=== PATIENT | female | born 1955 | race Caucasian/White ===

== ENCOUNTER 2018-09-21 19:55 | Inpatient (IN) ==
[2018-09-21] MEDS ORDERED: 0.9 % Sodium Chloride 1,000 ML IVC ONE ×2 (20:11→23:08)
--- NOTE | 2018-09-21 20:20 | Emergency Department Note ---
Disposition Clinical Impression: Pneumonia Qualifiers: Pneumonia type: due to unspecified organism Laterality: unspecified laterality Lung location: unspecified part of lung Qualified Code(s): J18.9 - Pneumonia, unspecified organism Disposition: Admitted As Inpatient Condition: Fair Time of Disposition: 23:16 SOB HPI - General Chief Complaint: ED Shortness of Breath/Dyspnea Stated Complaint: AUREA, congestion Time Seen by Provider: 09/21/18 20:00 Source: patient Mode of arrival: ambulatory Limitations: no limitations Nursing Notes Reviewed: Yes Vital Signs Reviewed: Yes - History of Present Illness This is a 63-year-old female with a history of hypertension he presents with shortness of breath that started today. Patient has been experiencing congestion symptoms for the past 1.5 months. However today she started being increasingly short of breath with a cough productive of sputum and wheezing. She also endorses chest tightness across the front of her chest that is constant. Pain does not worsen with deep breaths or movement. Pain is not improved with rest. Patient has not tried any medications for her pain or other symptoms. She endorses subjective chills but no nausea, vomiting, fevers. Patient says she smokes a pack per day has never been diagnosed with COPD. Denies abdominal pain, diarrhea, constipation. Denies dysuria. She also denies any recent hospitalizations, surgeries, hormone use. She has never had a blood clot and is not on any anticoagulation. Denies any leg cramping or swelling. - Related Data Home Medications Medication Instructions Recorded Confirmed LORazepam [Ativan] 1.5 mg PO QID PRN 10/08/14 04/28/16 Montelukast [Singulair] 10 mg PO DAILY 10/08/14 04/28/16 Simvastatin 20 mg PO QPM 10/08/14 04/28/16 Ergocalciferol (VITAMIN D2) 50,000 unit PO TUSA 08/08/15 04/28/16 [Vitamin D2 (50,000 UNIT)] Fexofenadine HCl 180 mg PO DAILY 08/08/15 04/28/16 Valsartan/Hydrochlorothiazide 1 each PO DAILY 08/08/15 04/28/16 [Diovan Hct 320-12.5 mg Tab] Lansoprazole [Prevacid] 30 mg PO DAILY 04/28/16 04/28/16 Levothyroxine [Synthroid] 100 mcg PO DAILY 09/21/18 09/21/18 Allergies Allergy/AdvReac Type Severity Reaction Status Date / Time Sulfa (Sulfonamide Allergy Intermediate Swelling Verified 09/21/18 20:00 Antibiotics) of Lip/Tongue/Throat ciprofloxacin [From Cipro] AdvReac Gastrointestinal Verified 09/21/18 20:00 Upset hydrocodone AdvReac Hallucinati Verified 09/21/18 20:00 ng tramadol [From Ultram] AdvReac Swelling Verified 09/21/18 20:00 of Lip/Tongue/Throat All systems ED: reviewed and negative except as stated. Review of Systems: As Per HPI Constitutional: Denies: fever, chills, weakness Eyes: Denies: eye pain, eye discharge, vision change ENT ED: Denies: ear pain, throat pain, dental pain Cardiovascular: Denies: chest pain, palpitations, dyspnea on exertion Respiratory: Reports: cough, dyspnea, wheezes, sputum production. Denies: hemoptysis Gastrointestinal: Denies: abdominal pain, nausea, vomiting, diarrhea, constipation, hematemesis Genitourinary: Denies: urgency, dysuria, frequency Musculoskeletal: Denies: back pain, neck pain, joint swelling Integumentary: Denies: rash, abrasion, lesions Neurological: Denies: headache, weakness, numbness Psychiatric: Denies: anxiety, depression, suicidal thoughts Endocrine: Denies: fatigue, heat or cold intolerance, polydipsia Past Medical History - Past Medical History Attestation: Yes The following information was validated with the patient. Source: patient Medical history: Reports: GERD, hyperlipidemia, hypertension, thyroid disease Surgical history: Reports: cholecystectomy, orthopedic, other, sinus surgery, other Psychiatric history: Reports: anxiety, depression [employer] REPRESENTATIVE history: Reports: bilateral tubal ligation - Social History Smoking Status: Current every day smoker Smokeless Tobacco Status: No Alcohol use: Reports: rarely Drug use: Reports: none Physical Exam Gen: alert, in no apparent distress, conversant Head: normal inspection, atraumatic, normocephalic Eye: PERRL, EOMI, no scleral icterus ENT: moist mucous membranes, normal oropharynx, no erythema/drainage Neck: trachea midline, no LAD, full ROM CV: normal inspection, RRR, no MRG, audible s1/s2 Pulm: IVs were rhonchi and crackles, good air exchange bilaterally GI: normal inspection, soft, nontender, nondistended, active BS, no rebound/rigidity/guarding, no trauma : no CVA or suprapubic tenderness Skin/Ext: warm, flushed, dry, intact, Ext: full peripheral pulses, no LE edema MSK: appropriate muscle tone, full ROM, no joint swelling/erythema Back: normal inspection, full ROM Neuro: alert, orientedx3 Psych: normal affect, normal mood - General General appearance: alert, in no apparent distress Course Course Narrative: Patient was seen and examined. Vitals were remarkable for fever 100.2 and tachycardic to the 120s. Blood pressure systolic in 150s. Sepsis order set was ordered. A 1 L bolus of normal saline was given and not the typical 3 L out of concern for fluid overload. She was given 1 g of Tylenol. DuoNeb was given for shortness of breath. - Reevaluation(s) Reevaluation #1: Started on a course of a azithromycin and ceftriaxone. Time: 21:32 Reevaluation #2: She was given additional liter normal saline bolus. Time: 23:18 Reevaluation #3: Communicated with hospitalist, accepted for admission. Time: 23:19 Vital Signs Temperature 100.2 F H 09/21/18 19:57 Pulse Rate 124 09/21/18 19:57 Respiratory Rate 18 09/21/18 19:57 Blood Pressure 150/85 09/21/18 19:57 O2 Sat by Pulse Oximetry 92 09/21/18 19:57 Temperature 99.3 F 09/21/18 22:02 Pulse Rate 106 09/21/18 22:02 Respiratory Rate 18 09/21/18 20:51 Blood Pressure 133/72 09/21/18 22:02 O2 Sat by Pulse Oximetry 95 09/21/18 22:02 Oxygen Delivery Oxygen Delivery Room Air Shortness of Breath/Dyspnea - MDM Narrative Medical decision making narrative: The patient is a 63-year-old female who is presenting with fever, shortness of breath, cough for the past day. Differential includes but is not limited to pneumonia concerning for sepsis, DVT/PE, TN, ACS, COPD exacerbation. Labs remarkable for a white count 22, lactic acid of 2.3, potassium of 3.4. D-dimer was negative making DVT/PE less likely. EKG showed no signs of ischemia thinking TN/ACS less likely. Chest x-ray showed an increased density in the left retrocardiac region with possible atelectasis or pneumonia. She was started on azithromycin and ceftriaxone for community acquired pneumonia. She at this time is resting comfortably, stable and is not hypoxemic. Patient was communicated to the hospitalist and she was accepted for admission for further management of pneumonia. - Medical Records Medical records reviewed: Yes I reviewed the patient's medical records. - Lab Data Lab results reviewed: Yes I reviewed the patient's lab results. Result diagrams: 09/21/18 20:24 09/21/18 20:24 Lab Results 09/21/18 09/21/18 09/21/18 Range/Units 20:24 20:24 20:24 WBC 22.0 H (4.3-11.1) K/mcL RBC 5.30 H (3.82-4.97) M/mcL Hgb 16.1 H (11.5-15.4) g/dL Hct 48.3 H (35.3-44.9) % MCV 91.1 (83.0-100.0) fL MCH 30.4 (28.0-33.3) pg MCHC 33.3 (31.6-35.5) g/dL RDW 13.7 (11.5-14.5) % Plt Count 224 (140-400) K/mcL MPV 11.5 (9.4-12.4) fL Immature Gran % 0.5 (0-4) % Seg Neutrophils % 81.0 % Lymphocytes % 12.9 % Monocytes % 5.0 % Eosinophils % 0.3 % Basophils % 0.3 % Neutrophils # 17.8 H (1.6-8.9) K/mcL Lymphocytes # 2.8 (0.6-4.6) K/mcL Monocytes # 1.1 (0.0-1.3) K/mcL Eosinophils # 0.1 (0.0-0.6) K/mcL Basophils # 0.1 (0.0-0.2) K/mcL D-Dimer (0-500) ng/mLFEU Sodium 138 (136-145) mEq/L Potassium 3.4 L (3.5-5.1) mEq/L Chloride 102 (98-107) mEq/L Carbon Dioxide 24 (23-29) mEq/L BUN 14 (8-23) mg/dL Creatinine 0.66 (0.60-1.20) mg/dL Est GFR ( Amer) > 60 (> 60) Est GFR (Non-Af Amer) > 60 (> 60) BUN/Creatinine Ratio 21 (6-26) Glucose 99 (70-105) mg/dL Calculated Osmolality 287 (280-300) Lactic Acid 2.3 H (0.5-2.2) mmol/L Calcium 9.5 (8.6-10.3) mg/dL Phosphorus 3.5 (2.7-4.5) mg/dL Magnesium 1.8 (1.6-2.6) mg/dL Total Bilirubin 0.6 (0.3-1.0) mg/dL Direct Bilirubin 0.2 (0.0-0.2) mg/dL Indirect Bilirubin 0.4 (0.0-1.2) mg/dL AST 17 (13-39) Units/L ALT 16 (7-52) Units/L Alkaline Phosphatase 76 (34-104) Units/L Troponin I < 0.03 (< 0.04) ng/mL Serum Total Protein 7.6 (6.4-8.9) g/dL Albumin 4.5 (3.5-5.7) g/dL Globulin 3.1 (2.4-3.5) g/dL Albumin/Globulin Ratio 1.5 (1.1-2.2) // Range/Units 20:25 WBC (4.3-11.1) K/mcL RBC (3.82-4.97) M/mcL Hgb (11.5-15.4) g/dL Hct (35.3-44.9) % MCV (83.0-100.0) fL MCH (28.0-33.3) pg MCHC (31.6-35.5) g/dL RDW (11.5-14.5) % Plt Count (140-400) K/mcL MPV (9.4-12.4) fL Immature Gran % (0-4) % Seg Neutrophils % % Lymphocytes % % Monocytes % % Eosinophils % % Basophils % % Neutrophils # (1.6-8.9) K/mcL Lymphocytes # (0.6-4.6) K/mcL Monocytes # (0.0-1.3) K/mcL Eosinophils # (0.0-0.6) K/mcL Basophils # (0.0-0.2) K/mcL D-Dimer 400 (0-500) ng/mLFEU Sodium (136-145) mEq/L Potassium (3.5-5.1) mEq/L Chloride (98-107) mEq/L Carbon Dioxide (23-29) mEq/L BUN (8-23) mg/dL Creatinine (0.60-1.20) mg/dL Est GFR ( Amer) (> 60) Est GFR (Non-Af Amer) (> 60) BUN/Creatinine Ratio (6-26) Glucose (70-105) mg/dL Calculated Osmolality (280-300) Lactic Acid (0.5-2.2) mmol/L Calcium (8.6-10.3) mg/dL Phosphorus (2.7-4.5) mg/dL Magnesium (1.6-2.6) mg/dL Total Bilirubin (0.3-1.0) mg/dL Direct Bilirubin (0.0-0.2) mg/dL Indirect Bilirubin (0.0-1.2) mg/dL AST (13-39) Units/L ALT (7-52) Units/L Alkaline Phosphatase (34-104) Units/L Troponin I (< 0.04) ng/mL Serum Total Protein (6.4-8.9) g/dL Albumin (3.5-5.7) g/dL Globulin (2.4-3.5) g/dL Albumin/Globulin Ratio (1.1-2.2) - Radiology Data Radiology results reviewed: Yes I reviewed the patient's radiology results. Chest X-Ray 09/21/18 20:12 IMPRESSION: Increased density in the left retrocardiac region. This is likely a confluence of shadows however a small focal segment of atelectasis/pneumonia would be difficult to exclude. Upright two view 2 chest would be more helpful in this regard No acute abnormality otherwise D/ / Oh Valerio / Oh Valerio Interpreting Provider: Oh Valerio - EKG Data EKG attestation: Yes I reviewed and interpreted this EKG. EKG results narrative: KG was obtained at 8:08 PM. My interpretation of the EKG shows sinus tachycardia at a rate of 118. Normal intervals, no axis deviation, no hypertrophy, no ST elevations or depressions, no T-wave inversions. No evidence of Brugada, HOCM, the WPW. Compared to previous EKG from the Apr 22 2016. Sepsis Event Note - Evaluation Sepsis Screen: Sepsis Risk Current Stage of Suspected Sepsis: sepsis Possible Source of Sepsis: pulmonary - Focused Exam Date of Encounter: 09/21/18 Time of Encounter: Vital Signs: Vital Signs Temp Pulse Resp BP Pulse Ox 09/21/18 22:02 99.3 F 106 133/72 95 09/21/18 20:51 18 97 09/21/18 20:06 100.2 F H 124 18 150/85 92 09/21/18 19:57 100.2 F H 124 18 150/85 92 Respiratory Exam: Present: rhonchi, crackles Cardiovascular Exam: Present: tachycardia. Absent: irregular rhythm, murmur, rubs Capillary Refill: < 2 seconds Peripheral Pulse Strength: 3+ normal Peripheral Pulse Location: Radial Skin Exam: flushed - Bedside Monitoring Bedside Ultrasound Performed: No Passive Leg raise/fluid bolus: not performed
--- NOTE | 2018-09-21 20:31 | Emergency Department Note ---
Disposition Clinical Impression: Pneumonia Qualifiers: Pneumonia type: due to unspecified organism Laterality: left Lung location: unspecified part of lung Qualified Code(s): J18.9 - Pneumonia, unspecified organism Disposition: Admitted As Inpatient Condition: Fair Referrals: Gatito Cleary DO [Primary Care Provider] - Forms: ED Satisfaction Letter Time of Disposition: 23:01 General Adult HPI - General Chief complaint: ED Shortness of Breath/Dyspnea Stated complaint: AUREA, congestion Time Seen by Provider: 09/21/18 20:00 Source: patient Mode of arrival: ambulatory Limitations: no limitations - History of Present Illness Pain Scale: 4 - Related Data Home Medications Medication Instructions Recorded Confirmed LORazepam [Ativan] 1.5 mg PO QID PRN 10/08/14 09/21/18 Montelukast [Singulair] 10 mg PO DAILY 10/08/14 09/21/18 Simvastatin 20 mg PO QPM 10/08/14 09/21/18 Ergocalciferol (VITAMIN D2) 50,000 unit PO TUSA 08/08/15 09/21/18 [Vitamin D2 (50,000 UNIT)] Fexofenadine HCl 180 mg PO DAILY 08/08/15 09/21/18 Valsartan/Hydrochlorothiazide 1 each PO DAILY 08/08/15 09/21/18 [Diovan Hct 320-12.5 mg Tab] Lansoprazole [Prevacid] 30 mg PO DAILY 04/28/16 09/21/18 Levothyroxine [Synthroid] 100 mcg PO DAILY 09/21/18 09/21/18 Allergies Allergy/AdvReac Type Severity Reaction Status Date / Time Sulfa (Sulfonamide Allergy Intermediate Swelling Verified 09/21/18 20:00 Antibiotics) of Lip/Tongue/Throat ciprofloxacin [From Cipro] AdvReac Gastrointestinal Verified 09/21/18 20:00 Upset hydrocodone AdvReac Hallucinati Verified 09/21/18 20:00 ng tramadol [From Ultram] AdvReac Swelling Verified 09/21/18 20:00 of Lip/Tongue/Throat Constitutional: Denies: fever, chills, weakness Eyes: Denies: eye pain, eye discharge, vision change ENT ED: Denies: ear pain, throat pain, dental pain Cardiovascular: Denies: chest pain, palpitations, dyspnea on exertion Respiratory: Reports: cough, dyspnea, wheezes, sputum production. Denies: hemoptysis Gastrointestinal: Denies: abdominal pain, nausea, vomiting, diarrhea, constipation, hematemesis Genitourinary: Denies: urgency, dysuria, frequency Musculoskeletal: Denies: back pain, neck pain, joint swelling Integumentary: Denies: rash, abrasion, lesions Neurological: Denies: headache, weakness, numbness Psychiatric: Denies: anxiety, depression, suicidal thoughts Endocrine: Denies: fatigue, heat or cold intolerance, polydipsia Past Medical History - Past Medical History Medical history: Reports: GERD, hyperlipidemia, hypertension, thyroid disease Surgical history: Reports: cholecystectomy, orthopedic, other, sinus surgery, other Psychiatric history: Reports: anxiety, depression [employer] history: Reports: bilateral tubal ligation - Social History Smoking Status: Current every day smoker Smokeless Tobacco Status: No Alcohol use: Reports: rarely Drug use: Reports: none Physical Exam - General Limitations: no limitations General appearance: alert, in no apparent distress Course Vital Signs Temperature 100.2 F H 09/21/18 19:57 Pulse Rate 124 09/21/18 19:57 Respiratory Rate 18 09/21/18 19:57 Blood Pressure 150/85 09/21/18 19:57 O2 Sat by Pulse Oximetry 92 09/21/18 19:57 Temperature 99.3 F 09/21/18 22:02 Pulse Rate 106 09/21/18 22:02 Respiratory Rate 18 09/21/18 20:51 Blood Pressure 133/72 09/21/18 22:02 O2 Sat by Pulse Oximetry 95 09/21/18 22:02 Oxygen Delivery Oxygen Delivery Room Air Medical Decision Making - Lab Data Result diagrams: 09/21/18 20:24 09/21/18 20:24 Lab Results 09/21/18 09/21/18 09/21/18 Range/Units 20:24 20:24 20:24 WBC 22.0 H (4.3-11.1) K/mcL RBC 5.30 H (3.82-4.97) M/mcL Hgb 16.1 H (11.5-15.4) g/dL Hct 48.3 H (35.3-44.9) % MCV 91.1 (83.0-100.0) fL MCH 30.4 (28.0-33.3) pg MCHC 33.3 (31.6-35.5) g/dL RDW 13.7 (11.5-14.5) % Plt Count 224 (140-400) K/mcL MPV 11.5 (9.4-12.4) fL Immature Gran % 0.5 (0-4) % Seg Neutrophils % 81.0 % Lymphocytes % 12.9 % Monocytes % 5.0 % Eosinophils % 0.3 % Basophils % 0.3 % Neutrophils # 17.8 H (1.6-8.9) K/mcL Lymphocytes # 2.8 (0.6-4.6) K/mcL Monocytes # 1.1 (0.0-1.3) K/mcL Eosinophils # 0.1 (0.0-0.6) K/mcL Basophils # 0.1 (0.0-0.2) K/mcL D-Dimer (0-500) ng/mLFEU Sodium 138 (136-145) mEq/L Potassium 3.4 L (3.5-5.1) mEq/L Chloride 102 (98-107) mEq/L Carbon Dioxide 24 (23-29) mEq/L BUN 14 (8-23) mg/dL Creatinine 0.66 (0.60-1.20) mg/dL Est GFR ( Amer) > 60 (> 60) Est GFR (Non-Af Amer) > 60 (> 60) BUN/Creatinine Ratio 21 (6-26) Glucose 99 (70-105) mg/dL Calculated Osmolality 287 (280-300) Lactic Acid 2.3 H (0.5-2.2) mmol/L Calcium 9.5 (8.6-10.3) mg/dL Phosphorus 3.5 (2.7-4.5) mg/dL Magnesium 1.8 (1.6-2.6) mg/dL Total Bilirubin 0.6 (0.3-1.0) mg/dL Direct Bilirubin 0.2 (0.0-0.2) mg/dL Indirect Bilirubin 0.4 (0.0-1.2) mg/dL AST 17 (13-39) Units/L ALT 16 (7-52) Units/L Alkaline Phosphatase 76 (34-104) Units/L Troponin I < 0.03 (< 0.04) ng/mL Serum Total Protein 7.6 (6.4-8.9) g/dL Albumin 4.5 (3.5-5.7) g/dL Globulin 3.1 (2.4-3.5) g/dL Albumin/Globulin Ratio 1.5 (1.1-2.2) 09/21/18 Range/Units 20:25 WBC (4.3-11.1) K/mcL RBC (3.82-4.97) M/mcL Hgb (11.5-15.4) g/dL Hct (35.3-44.9) % MCV (83.0-100.0) fL MCH (28.0-33.3) pg MCHC (31.6-35.5) g/dL RDW (11.5-14.5) % Plt Count (140-400) K/mcL MPV (9.4-12.4) fL Immature Gran % (0-4) % Seg Neutrophils % % Lymphocytes % % Monocytes % % Eosinophils % % Basophils % % Neutrophils # (1.6-8.9) K/mcL Lymphocytes # (0.6-4.6) K/mcL Monocytes # (0.0-1.3) K/mcL Eosinophils # (0.0-0.6) K/mcL Basophils # (0.0-0.2) K/mcL D-Dimer 400 (0-500) ng/mLFEU Sodium (136-145) mEq/L Potassium (3.5-5.1) mEq/L Chloride (98-107) mEq/L Carbon Dioxide (23-29) mEq/L BUN (8-23) mg/dL Creatinine (0.60-1.20) mg/dL Est GFR ( Amer) (> 60) Est GFR (Non-Af Amer) (> 60) BUN/Creatinine Ratio (6-26) Glucose (70-105) mg/dL Calculated Osmolality (280-300) Lactic Acid (0.5-2.2) mmol/L Calcium (8.6-10.3) mg/dL Phosphorus (2.7-4.5) mg/dL Magnesium (1.6-2.6) mg/dL Total Bilirubin (0.3-1.0) mg/dL Direct Bilirubin (0.0-0.2) mg/dL Indirect Bilirubin (0.0-1.2) mg/dL AST (13-39) Units/L ALT (7-52) Units/L Alkaline Phosphatase (34-104) Units/L Troponin I (< 0.04) ng/mL Serum Total Protein (6.4-8.9) g/dL Albumin (3.5-5.7) g/dL Globulin (2.4-3.5) g/dL Albumin/Globulin Ratio (1.1-2.2) Attestation Statement - Attestation Attestation: I examined this patient and my medical decision-making was reviewed with the Resident Physician. I agree with the documented findings, disposition and treatment plan as described except to the extent set forth below. Patient presents to the ED with a chief complaint of shortness of breath. Patient has had a cough and congestion for couple of weeks. It worsened today. She has felt feverish, but has not had a thermometer to check her temperature. History of hypertension. History of a spine fusion. On exam she is in no respiratory distress. She has diffuse rhonchi and wheezing on lung auscultation. Plan. Septic workup. Patient with infiltrate on her chest x-ray. She does need sepsis criteria tachycardia, fever, leukocytosis. IV antibodies ordered. Blood cultures ordered. Lactic ordered. She does not meet septic shock criteria. Patient is hemodynamically stable. Admitted to medicine. Chest X-Ray 09/21/18 20:12 IMPRESSION: Increased density in the left retrocardiac region. This is likely a confluence of shadows however a small focal segment of atelectasis/pneumonia would be difficult to exclude. Upright two view 2 chest would be more helpful in this regard No acute abnormality otherwise D/ / Oh Valerio / Oh Valerio Interpreting Provider: Oh Valerio
[2018-09-21] MEDS ORDERED: Ipratropium/Albuterol Neb 3 ML IH ONE (20:32)
[2018-09-21 20:39] LABS: Basophils # 0.1 K/mcL (0.0-0.2); Basophils % 0.3 %; Eosinophils # 0.1 K/mcL (0.0-0.6); Eosinophils % 0.3 %; Hematocrit 48.3 % (35.3-44.9); Hemoglobin 16.1 g/dL (11.5-15.4); Immature Granulocytes % 0.5 % (0-4); Lymphocytes # 2.8 K/mcL (0.6-4.6); Lymphocytes % 12.9 %; Mean Corpuscular HGB Conc 33.3 g/dL (31.6-35.5); Mean Corpuscular Hemoglobin 30.4 pg (28.0-33.3); Mean Corpuscular Volume 91.1 fL (83.0-100.0); Mean Platelet Volume 11.5 fL (9.4-12.4); Monocytes # 1.1 K/mcL (0.0-1.3); Neutrophils # 17.8 K/mcL (1.6-8.9); Platelet Count 224 K/mcL (140-400); Red Cell Distribution Width 13.7 % (11.5-14.5)
[2018-09-21 20:58] LABS: Alanine Aminotransferase 16 Units/L (7-52); Albumin 4.5 g/dL (3.5-5.7); Albumin/Globulin Ratio 1.5 (1.1-2.2); Alkaline Phosphatase 76 Units/L (34-104); Aspartate Amino Transferase 17 Units/L (13-39); BUN/Creatinine Ratio 21 (6-26); Bilirubin,Direct 0.2 mg/dL (0.0-0.2); Bilirubin,Indirect 0.4 mg/dL (0.0-1.2); Bilirubin,Total 0.6 mg/dL (0.3-1.0); Blood Urea Nitrogen 14 mg/dL (8-23); Calcium 9.5 mg/dL (8.6-10.3); Carbon Dioxide 24 mEq/L (23-29); Chloride 102 mEq/L (98-107); Globulin 3.1 g/dL (2.4-3.5); Glucose 99 mg/dL (70-105); Magnesium 1.8 mg/dL (1.6-2.6); Osmolality,Calculated 287 (280-300); Phosphorous 3.5 mg/dL (2.7-4.5); Potassium 3.4 mEq/L (3.5-5.1); Sodium 138 mEq/L (136-145); Total Protein 7.6 g/dL (6.4-8.9); Troponin I < 0.03 ng/mL (< 0.04); eGFR For African Americans > 60 (> 60); eGFR For Non-African Americans > 60 (> 60)
[2018-09-21] MEDS ORDERED: Azithromycin 250 MG TABLET PO ONE (21:28)
[2018-09-21] MEDS ORDERED: cefTRIAXone 1,000 MG in Water for inj. (sterile) 10 ML IVP ONE (21:29)
[2018-09-21 23:35] LABS: Bilirubin,Urine Negative (Negative); Blood,Urine Negative (Negative); Clarity,Urine Clear (Clear); Color,Urine Yellow (Yellow); Glucose,Urine (UA) Normal (Normal); Ketones,Urine Negative (Negative); Leukocyte Esterase,Urine Negative (Negative); Nitrite,Urine Negative (Negative); PH,Urine 5.5 pH Units (5.0-8.0); Protein,Urine Negative (Neg-Trace); Specific Gravity,Urine 1.015 (1.010-1.025); Urobilinogen,Urine Normal (Normal)
[2018-09-21] MEDS ORDERED: 0.9 % Sodium Chloride 1,000 ML IVC SCH (23:45)
[2018-09-21] MEDS ORDERED: Naloxone 0.4 MG/ML INJ IVP PRN (23:47)
[2018-09-21] MEDS ORDERED: Isovue-370 500 ML BOTTLE IVP ONE (23:50)
[2018-09-22] MEDS ORDERED: Ipratropium/Albuterol Neb 3 ML IH PRN (00:28)
--- NOTE | 2018-09-22 00:34 | Internal Med History&Physical ---
Date of Encounter: 09/22/18 Time of Encounter: 00:33 Internal Medicine - H&P: HPI Chief complaint: cough Admitted From: Home Plans for Post Hospital Care: Home History of present illness: Jeana Castañeda is a 63 year old woman who is an active 1 pack-a-day smoker with hypertension and postsurgical hypothyroidism presents to the emergency room complaining of 2 days of chest and nasal congestion, increasing shortness of breath, productive cough and chills. In the ER she was found to have a temperature of 100.2 F, tachycardic and with lab work revealing a leukocyte count of 22. Chest x-ray is reviewed by me showed increased density in the retrocardiac region concerning for pneumonia. She was started on empiric antibiotics and is admitted for further care. Vitals: Reviewed General: Obese white woman sitting up in bed in no acute distress. Skin: Warm, dry and pale. HEENT: Moist mucous membranes. No conjunctivae pallor. Neck: No lymphadenopathy. No JVD. No carotid bruits. No palpable thyroid. Chest: Reduced thoracic expansion. Diminished breath sounds in the right base. Fine rales in the left base. Heart: Normal S1 & S2; rhythmic. No rubs or murmurs. Abdomen: Non-distended, soft and non-tender to palpation. No peritoneal reaction. Extremities: No clubbing, cyanosis or edema. No calf tenderness. Normal distal pulses. Neurological: Awake, alert and oriented to person, place and time. No focal deficits. Psych: Affect appropriate. Assessment/Plan 1. Sepsis secondary to community-acquired pneumonia: Will continue ceftriaxone/azithromycin for now, follow blood cultures, collect urine for antigen testing and provide nebulizer therapy as needed. 2. Hypertension: On valsartan/HCTZ. 3. Smoker: 5 minutes were spent counseling and educating the patient on this habit. substance abuse services director and resources were made available. 4. Hyperlipidemia: On simvastatin. Past Med Surg Social Fam HX - Past Medical History Medical history: GERD, hyperlipidemia, hypertension, thyroid disease Additional medical history: cystocele, elevated lft's, hx blood clot l arm. Thyroid nodule. GERD. Tobacco abuse. declined smoking cessation Psychiatric history: anxiety, depression - Past Surgical History Surgical History: cholecystectomy, sinus surgery Additional surgical history: r knee arthroscopy, tubal, fusion of l4/l5, partial thyroidectomy - Social History Smoking Status: Current every day smoker Smokeless Tobacco Status: No Alcohol use: rarely Drug use: none - Family History Mother Hx Family Cardiac Disorders: Yes Father Hx Family Cardiac Disorders: Yes Internal Medicine - H&P: Meds LORazepam [Ativan] 1.5 mg PO QID PRN 10/08/14 [History] Montelukast [Singulair] 10 mg PO DAILY 10/08/14 [History] Simvastatin 20 mg PO QPM 10/08/14 [History] Ergocalciferol (VITAMIN D2) [Vitamin D2 (50,000 UNIT)] 50,000 unit PO TUSA 08/08/15 [History] Fexofenadine HCl 180 mg PO DAILY 08/08/15 [History] Valsartan/Hydrochlorothiazide [Diovan Hct 320-12.5 mg Tab] 1 each PO DAILY 08/08/15 [History] Lansoprazole [Prevacid] 30 mg PO DAILY 04/28/16 [History] Levothyroxine [Synthroid] 100 mcg PO DAILY 09/21/18 [History] Allergy/AdvReac Type Severity Reaction Status Date / Time Sulfa (Sulfonamide Allergy Intermediate Swelling Verified 09/21/18 20:00 Antibiotics) of Lip/Tongue/Throat ciprofloxacin [From Cipro] AdvReac Gastrointestinal Verified 09/21/18 20:00 Upset hydrocodone AdvReac Hallucinati Verified 09/21/18 20:00 ng tramadol [From Ultram] AdvReac Swelling Verified 09/21/18 20:00 of Lip/Tongue/Throat All Systems PM: A 10-system review of systems was performed and is negative for pertinent findings except as documented above in the HPI. - Constitutional Vitals: Temp Pulse Resp BP Pulse Ox 98.4 F 100 16 131/78 91 09/21/18 23:58 09/21/18 23:58 09/21/18 23:58 09/21/18 23:58 09/21/18 23:58 Exam: . Internal Med - H&P Results - Labs CBC & Chem 7: 09/21/18 20:24 09/21/18 20:24 Labs: Short CBC 09/21/18 Range/Units 20:24 WBC 22.0 H (4.3-11.1) K/mcL Hgb 16.1 H (11.5-15.4) g/dL Hct 48.3 H (35.3-44.9) % Plt Count 224 (140-400) K/mcL Neutrophils # 17.8 H (1.6-8.9) K/mcL BMP 09/21/18 20:24 Sodium 138 Potassium 3.4 L Chloride 102 Carbon Dioxide 24 BUN 14 Creatinine 0.66 Glucose 99 Calcium 9.5 Cardiac Enzymes 09/21/18 Range/Units 20:24 Troponin I < 0.03 (< 0.04) ng/mL Liver Function 09/21/18 Range/Units 20:24 Total Bilirubin 0.6 (0.3-1.0) mg/dL Direct Bilirubin 0.2 (0.0-0.2) mg/dL AST 17 (13-39) Units/L ALT 16 (7-52) Units/L Alkaline Phosphatase 76 (34-104) Units/L Albumin 4.5 (3.5-5.7) g/dL Urine 09/21/18 Range/Units 20:20 Urine Color Yellow (Yellow) Urine Clarity Clear (Clear) Urine pH 5.5 (5.0-8.0) pH Units Ur Specific [place] 1.015 (1.010-1.025) Urine Protein Negative (Neg-Trace) mg/dL Urine Glucose (UA) Normal (Normal) mg/dL - Impressions ITS Impressions Chest X-Ray 09/21/18 20:12 IMPRESSION: Increased density in the left retrocardiac region. This is likely a confluence of shadows however a small focal segment of atelectasis/pneumonia would be difficult to exclude. Upright two view 2 chest would be more helpful in this regard No acute abnormality otherwise D/ / Oh Valerio / Oh Valerio Interpreting Provider: Oh Valerio - Time Spent With Patient Total time spent is greater than 50% in coordination of care (as documented) at patient's floor/unit and/or counseling patient: Greater than 35 minutes
[2018-09-22] MEDS: *HR* Heparin 5,000 UNIT/ML VIAL SQ SCH ×2 (06:12→18:14)
[2018-09-22 07:35] LABS: Basophils % 0.2 %; Eosinophils # 0.1 K/mcL (0.0-0.6); Eosinophils % 0.5 %; Hematocrit 41.3 % (35.3-44.9); Immature Granulocytes % 0.4 % (0-4); Lymphocytes # 2.4 K/mcL (0.6-4.6); Lymphocytes % 13.6 %; Mean Corpuscular HGB Conc 32.9 g/dL (31.6-35.5); Mean Corpuscular Hemoglobin 30.2 pg (28.0-33.3); Mean Corpuscular Volume 91.6 fL (83.0-100.0); Mean Platelet Volume 11.7 fL (9.4-12.4); Monocytes # 0.9 K/mcL (0.0-1.3); Monocytes % 5.3 %; Platelet Count 191 K/mcL (140-400); Red Blood Count 4.51 M/mcL (3.82-4.97); Red Cell Distribution Width 13.8 % (11.5-14.5); White Blood Count 17.5 K/mcL (4.3-11.1)
[2018-09-22 07:55] LABS: BUN/Creatinine Ratio 18 (6-26); Blood Urea Nitrogen 10 mg/dL (8-23); Calcium 8.5 mg/dL (8.6-10.3); Carbon Dioxide 24 mEq/L (23-29); Chloride 105 mEq/L (98-107); Glucose 117 mg/dL (70-105); Osmolality,Calculated 298 (280-300); Potassium 3.6 mEq/L (3.5-5.1); Sodium 144 mEq/L (136-145); eGFR For African Americans > 60 (> 60); eGFR For Non-African Americans > 60 (> 60)
[2018-09-22] MEDS: cefTRIAXone 1,000 MG in Water for inj. (sterile) 10 ML IVPB SCH (08:10)
[2018-09-22] MEDS: Loratadine 10 MG TABLET PO SCH (08:11)
[2018-09-22] MEDS: Acetaminophen 325 MG TABLET PO PRN (08:11)
[2018-09-22] MEDS: Azithromycin 500 MG in D5% in Water 250 ML IVPB SCH (08:12)
[2018-09-22] MEDS: Cholecalciferol (D-3) 1,000 UNIT (25MCG) TABLET PO SCH (08:13)
[2018-09-22] MEDS: *HR* LORazepam 1 MG TABLET PO PRN ×3 (08:20→21:10)
[2018-09-22 08:27] LABS: Hemoglobin 13.6 g/dL (11.5-15.4)
[2018-09-22] MEDS ORDERED: hydroCHLOROthiazide 25 MG TABLET PO SCH (09:00)
[2018-09-22] MEDS ORDERED: Valsartan 160 MG TABLET PO SCH (09:00)
--- NOTE | 2018-09-22 12:20 | Internal Med Progress Note ---
Hospitalist Progress Note - Encounter Date of Encounter: 09/22/18 Time of Encounter: 08:40 - Subjective Interval History: No acute events. Patient complains of some moderate lower back pain. She denies shortness of breath and chest pain at the moment. Her CT scan shows some infiltrates in the medial middle davon and right lower lobe which are consistent with pneumonia in light of her clinical presentation. - Exam Vitals: Temp Pulse Resp BP Pulse Ox 36.8 C 98 17 144/86 93 09/22/18 10:35 09/22/18 10:35 09/22/18 10:35 09/22/18 10:35 09/22/18 10:35 Exam: GENERAL: Not in distress. Alert and Oriented HEENT: EOMI, PERRLA MOUTH: Good oral hygiene NECK:No JVD, No lymph nodes. CHEST AND LUNGS: CTAB HEART: S1 and S2 normal, no murmurs ABDOMEN: Soft, nontender, no organomegaly GENITOURINARY: SKIN: Normal color, no rahses, no lesions EXTREMITIES: No deformity, no edema, no tenderness, no joint swelling or clubbing NEUROLOGICAL: Normal cognition, normal motor and sensory exam. - Assessment and Plan (1) Pneumonia Current Visit: Yes Status: Acute Assessment and Plan: -Patient presented last night with increased shortness of breath,productive cough and chills - Still has leukocytosis but is trending down - Vitals currently stable - Chest x-ray and CT scan findings consistent with a right lower lobe and middle lobe pneumonia - Continue azithromycin and ceftriaxone (2) Sepsis due to pneumonia Current Visit: Yes Status: Acute Assessment and Plan: Patient is currently vitally stable We will continue to monitor Continue azithromycin and ceftriaxone (3) Smoking Current Visit: Yes Status: Chronic Assessment and Plan: Patient counseled on smoking cessation (4) Hyperlipidemia Current Visit: Yes Status: Chronic Assessment and Plan: Continue home simvastatin (5) Hypertension Current Visit: No Status: Chronic Assessment and Plan: Blood pressure currently 140/78 We currently do not have olmersartan on formulary Patient takes a combination olmersartan and hydrochlorothiazide We will keep her on just hydrochlorothiazide for now since she refuses to take any substitute for olmersartan DVT Prophylaxis: SQ Heparin - Time Spent with Patient Total time spent is greater than 50% in coordination of care (as documented) at patient's floor/unit and/or counseling patient: Plan of Care Discussed with: patient Internal Medicine: Result - Labs CBC & Chem 7: 09/22/18 06:29 09/22/18 06:29 Labs: Short CBC 09/21/18 09/22/18 Range/Units 20:24 06:29 WBC 22.0 H 17.5 H (4.3-11.1) K/mcL Hgb 16.1 H 13.6 D (11.5-15.4) g/dL Hct 48.3 H 41.3 (35.3-44.9) % Plt Count 224 191 (140-400) K/mcL Neutrophils # 17.8 H 14.0 H (1.6-8.9) K/mcL BMP 09/21/18 09/22/18 20:24 06:29 Sodium 138 144 Potassium 3.4 L 3.6 Chloride 102 105 Carbon Dioxide 24 24 BUN 14 10 Creatinine 0.66 0.56 L Glucose 99 117 H Calcium 9.5 8.5 L Cardiac Enzymes 09/21/18 Range/Units 20:24 Troponin I < 0.03 (< 0.04) ng/mL Liver Function 09/21/18 Range/Units 20:24 Total Bilirubin 0.6 (0.3-1.0) mg/dL Direct Bilirubin 0.2 (0.0-0.2) mg/dL AST 17 (13-39) Units/L ALT 16 (7-52) Units/L Alkaline Phosphatase 76 (34-104) Units/L Albumin 4.5 (3.5-5.7) g/dL Urine 09/21/18 Range/Units 20:20 Urine Color Yellow (Yellow) Urine Clarity Clear (Clear) Urine pH 5.5 (5.0-8.0) pH Units Ur Specific [place] 1.015 (1.010-1.025) Urine Protein Negative (Neg-Trace) mg/dL Urine Glucose (UA) Normal (Normal) mg/dL - ABG Interpretation ABG results: PT/INR, D-dimer D-Dimer 400 ng/mLFEU (0-500) 09/21/18 20:25 - Impressions Impressions Chest X-Ray 09/21/18 20:12 IMPRESSION: Increased density in the left retrocardiac region. This is likely a confluence of shadows however a small focal segment of atelectasis/pneumonia would be difficult to exclude. Upright two view 2 chest would be more helpful in this regard No acute abnormality otherwise D/ / Oh Valerio / Oh Valerio Interpreting Provider: Oh Valerio Chest CT 09/22/18 23:50 IMPRESSION: 1. Infiltrates in the middle lobe and right lower lobe may represent atelectasis or pneumonia. 2. Bilateral nodular airspace disease may be infectious or inflammatory. 3. Coronary artery disease. D/ / Giovani Duran MD / Giovani Duran MD Interpreting Provider: Giovani Duran MD Consult Discharge Plan - Plan Referrals: Gatito Cleary DO [Primary Care Provider] - (1) Pneumonia Qualifiers: Pneumonia type: due to unspecified organism Laterality: right Lung location: lower lobe of lung Qualified Code(s): J18.1 - Lobar pneumonia, unspecified organism (5) Hypertension Qualifiers: Hypertension type: essential hypertension Qualified Code(s): I10 - Essential (primary) hypertension
[2018-09-22] MEDS: hydroCHLOROthiazide 25 MG TABLET PO SCH (14:04)
--- NOTE | 2018-09-23 00:21 | Electrocardiograph Report ---
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
[2018-09-23 03:29] LABS: BUN/Creatinine Ratio 18 (6-26); Blood Urea Nitrogen 11 mg/dL (8-23); Calcium 8.7 mg/dL (8.6-10.3); Carbon Dioxide 25 mEq/L (23-29); Chloride 104 mEq/L (98-107); Glucose 124 mg/dL (70-105); Osmolality,Calculated 287 (280-300); Potassium 3.3 mEq/L (3.5-5.1); Sodium 138 mEq/L (136-145); eGFR For African Americans > 60 (> 60); eGFR For Non-African Americans > 60 (> 60)
[2018-09-23 03:34] LABS: Basophils % 0.3 %; Eosinophils # 0.1 K/mcL (0.0-0.6); Eosinophils % 1.6 %; Hematocrit 39.5 % (35.3-44.9); Hemoglobin 13.2 g/dL (11.5-15.4); Immature Granulocytes % 0.3 % (0-4); Lymphocytes # 2.4 K/mcL (0.6-4.6); Lymphocytes % 27.6 %; Mean Corpuscular HGB Conc 33.4 g/dL (31.6-35.5); Mean Corpuscular Hemoglobin 31.1 pg (28.0-33.3); Mean Corpuscular Volume 92.9 fL (83.0-100.0); Mean Platelet Volume 11.8 fL (9.4-12.4); Monocytes # 0.7 K/mcL (0.0-1.3); Monocytes % 7.7 %; Neutrophils # 5.5 K/mcL (1.6-8.9); Platelet Count 182 K/mcL (140-400); Red Blood Count 4.25 M/mcL (3.82-4.97); Red Cell Distribution Width 13.7 % (11.5-14.5); Segmented Neutrophils % 62.5 %; White Blood Count 8.8 K/mcL (4.3-11.1)
[2018-09-23] MEDS: Acetaminophen 325 MG TABLET PO PRN (05:27)
[2018-09-23] MEDS: *HR* Heparin 5,000 UNIT/ML VIAL SQ SCH (05:27)
[2018-09-23] MEDS: hydroCHLOROthiazide 25 MG TABLET PO SCH (09:37)
[2018-09-23] MEDS: *HR* LORazepam 1 MG TABLET PO PRN (09:37)
[2018-09-23] MEDS: Loratadine 10 MG TABLET PO SCH (09:37)
[2018-09-23] MEDS: Azithromycin 500 MG in D5% in Water 250 ML IVPB SCH (09:38)
[2018-09-23] MEDS: cefTRIAXone 1,000 MG in Water for inj. (sterile) 10 ML IVPB SCH (09:39)
[2018-09-23] MEDS: Cholecalciferol (D-3) 1,000 UNIT (25MCG) TABLET PO SCH (09:40)
--- NOTE | 2018-09-23 09:52 | Discharge Summary ---
- NOTES TO OUTPATIENT PROVIDER Notes to Outpatient Provider: Patient might require PFTs as outpatient Orders not resulted at time of discharge: Pending orders 09/21/18 20:25 Culture,Blood [BC] Stat Date of Encounter: 09/23/18 Time of Encounter: 09:52 - Discharge Diagnosis (1) Pneumonia Priority: Primary Status: Acute Assessment and Plan: -WBC has normalized - Vitals currently stable - Pt denies symptoms - Chest x-ray and CT scan findings consistent with a right lower lobe and middle lobe pneumonia - Will discharge on oral levaquin Qualifiers: Pneumonia type: due to unspecified organism Laterality: right Lung location: lower lobe of lung Qualified Code(s): J18.1 - Lobar pneumonia, unspecified organism (2) Sepsis due to pneumonia Priority: Secondary Status: Acute (3) Smoking Priority: Secondary Status: Chronic (4) Hyperlipidemia Priority: Secondary Status: Chronic Qualifiers: Hyperlipidemia type: unspecified Qualified Code(s): E78.5 - Hyperlipidemia, unspecified (5) Hypertension Priority: Secondary Status: Chronic Qualifiers: Hypertension type: essential hypertension Qualified Code(s): I10 - Essential (primary) hypertension Hospital course: Ms. Castañeda is a 63 year old female active cigarette smoker who presented with SOB productive cough, fever and chills. She was evaluated and diagnosed of a right middle and lower lobe pneumonia and was started on IV antibiotics. She improved clinically and will be discharged on oral levaquin. Patient has bilateral wheezing on physical exam. Will recommend outpatient PFTs. Discharge discussed with: patient Time spent discussing smoking cessation with patient: 3 to 10 minutes - Time Spent with Patient Total time spent providing and/or coordinating discharge services:32min Time spent: Greater than 30 minutes (32) - Discharge Medications Prescriptions: New levoFLOXacin [Levaquin] 750 mg PO DAILY 7 Days #7 tablet Simvastatin [Zocor] 20 mg PO QPM #0 tablet Continued Fexofenadine HCl 180 mg PO DAILY Lansoprazole [Prevacid] 30 mg PO DAILY Levothyroxine [Synthroid] 100 mcg PO DAILY Olmesartan/Hydrochlorothiazide [Olmesartan-Hctz 40-25 mg Tab] 1 tab PO DAILY Ergocalciferol (VITAMIN D2) [Vitamin D2] 50,000 unit PO WESA LORazepam [Ativan] 1.5 mg PO 0800,1200 LORazepam [Ativan] 1 mg PO 1700,2100 Montelukast [Singulair] 10 mg PO DAILY Simvastatin [Zocor] 20 mg PO DAILY Home Medications: Fexofenadine HCl 180 mg PO DAILY 08/08/15 [History] Lansoprazole [Prevacid] 30 mg PO DAILY 04/28/16 [History] Levothyroxine [Synthroid] 100 mcg PO DAILY 09/21/18 [History] Ergocalciferol (VITAMIN D2) [Vitamin D2] 50,000 unit PO WESA 09/22/18 [History] LORazepam [Ativan] 1 mg PO 1700,2100 09/22/18 [History] LORazepam [Ativan] 1.5 mg PO 0800,1200 09/22/18 [History] Montelukast [Singulair] 10 mg PO DAILY 09/22/18 [History] Olmesartan/Hydrochlorothiazide [Olmesartan-Hctz 40-25 mg Tab] 1 tab PO DAILY 09/22/18 [History] Simvastatin [Zocor] 20 mg PO DAILY 09/22/18 [History] Simvastatin [Zocor] 20 mg PO QPM #0 tablet 09/23/18 [Rx] levoFLOXacin [Levaquin] 750 mg PO DAILY 7 Days #7 tablet 09/23/18 [Rx] Allergies/Adverse Reactions: Allergy/AdvReac Type Severity Reaction Status Date / Time Sulfa (Sulfonamide Allergy Intermediate Swelling Verified 09/22/18 21:25 Antibiotics) of Lip/Tongue/Throat ciprofloxacin [From Cipro] AdvReac Gastrointestinal Verified 09/22/18 21:25 Upset hydrocodone AdvReac Hallucinati Verified 09/22/18 21:25 ng tramadol [From Ultram] AdvReac Swelling Verified 09/22/18 21:25 of Lip/Tongue/Throat Date of admission: 09/22/18 00:14 Primary care physician: Gatito Cleary DO Consults: 09/22/18 09:01 Consult to Nurse Navigator [CONS] Routine Comment: pna - Constitutional Vitals: Temp Pulse Resp BP Pulse Ox 36.6 C 65 16 126/69 93 09/23/18 07:05 09/23/18 07:05 09/23/18 07:05 09/23/18 07:05 09/23/18 07:05 Exam: GENERAL: Not in distress. Alert and Oriented HEENT: EOMI, PERRLA MOUTH: Good oral hygiene NECK:No JVD, No lymph nodes. CHEST AND LUNGS: Bilateral wheezing. HEART: S1 and S2 normal, no murmurs ABDOMEN: Soft, nontender, no organomegaly GENITOURINARY: SKIN: Normal color, no rahses, no lesions EXTREMITIES: No deformity, no edema, no tenderness, no joint swelling or clubbing NEUROLOGICAL: Normal cognition, normal motor and sensory exam. - Patient Status Disposition: Home, Self-Care Condition: Good Functional capacity at discharge: independent ambulation Overall status at discharge: patient is progressing back to baseline - Discharge Instructions Follow Up With: Gatito Cleary DO [Primary Care Provider] - - Diet and Activity Activity: increase activity as tolerated Diet: low salt diet
[2018-09-23 10:26] VITALS: BP 147/79
[2018-09-24] MEDS ORDERED: levoFLOXacin 750 MG TABLET PO SCH (09:00)
== END 2018-09-23 13:15 | disposition home or self-care (01) | DRG 871 ==
LOC: EMEROOARM 19:55 → 3ANU 19:55 → SUATTDRO 09-22 00:14
PROVIDERS: ADMIT Internal Medicine; ATTEND Internal Medicine